=== PATIENT | female | born 1975 | race Caucasian/White ===

== ENCOUNTER 2024-05-12 11:33 | Emergency (ER) | payer BC, OTHER, SELFPAY ==
--- NOTE | ~2024-05-12 | XR_ITS ---
XR chest 2V Ordering provider: Zarina Rucker APRN History: 48 years Female with . cough x 1 week, cp when cough, mild SOB . Comparison: None. FINDINGS: MEDIASTINUM: The cardiac silhouette is not enlarged. LUNGS: No effusions or pneumothorax. Prominent bronchovascular markings in the lower lobes with minim al interstitial changes which may indicate pneumonitis.Follow-up advised. OTHER: No free air under the diaphragm. IMPRESSION: Prominent bronchovascular markings in the lower lobes with minimal interstitial changes which may ind icate bronchitis/pneumonitis. Follow-up advised. Reviewed, dictated and finalized at location A. IMPRESSION: Prominent bronchovascular markings in the lower lobes with minimal interstitial changes which may indicate bronchitis/pneumonitis. Follow-up advised.
--- NOTE | 2024-05-12 11:58 | ED.URI ---
HPI - URI/Sore Throat General Chief Complaint: Upper Respiratory Infection Stated Complaint: cough,bilateral ear discomfort Time Seen by Provider: 05/12/24 12:01 Source: patient and RN notes reviewed Mode of arrival: ambulatory Limitations: no limitations History of Present Illness HPI Narrative: 48-year-old female presented for complaint of harsh frequent cough for over 1 week. Endorses subjective fever, body ache and fatigue. Tested negative for COVID 3 days ago. Taking Mucinex. Denies shortness of breath, wheezing, nausea, vomiting, diarrhea. MD elicited complaint: cough Related Data Allergies Allergy/AdvReac Type Severity Reaction Status Date / Time erythromycin base AdvReac Nausea and Verified 05/12/24 11:50 Vomiting Review of Systems Review of Systems: CONSTITUTIONAL: Endorses malaise, chills, sweats, fever EYES: Denies visual changes, redness, or discharge ENT: Reports rhinorrhea, otalgia, denies sore throat CARDIOVASCULAR: Denies chest pain, palpitations, edema RESPIRATORY: Reports cough, post nasal drainage. Denies dyspnea GASTROINTESTINAL: Denies abdominal pain, nausea, vomiting, diarrhea SKIN: Denies rash or itching MUSCULOSKELETAL: Endorses myalgia Exam Narrative: GENERAL: mildly ll-appearing, nontoxic no acute distress. EYES: conjunctivae clear ENT: Mucous membranes moist. Right TM pearly liriano with dull light reflex; left TM erythematous, bulging and intact; canal not erythematous, no drainage no tragal tenderness. Oropharynx not erythematous without lesions or exudate, no drooling, no hoarseness, no trismus, uvula midline. No tripod positioning, muffled voice, soft palate or pharyngeal wall bulging NECK: Supple. No lymphadenopathy CHEST: Clear to auscultation, breath sounds equal. Frequent information security manager cough. No wheezing, rhonchi, rales, or stridor. No respiratory distress, speaks in full sentences. HEART: Regular rate and rhythm. No murmur heard. SKIN: Warm, dry, no rash. NEURO: Alert and oriented x3. PSYCH: Normal mood and affect Course Course Emergency Course: Patient is aware of diagnosis, understands and agrees to treatment plan. Anticipatory guidance given. Patient agrees to follow-up as directed and is aware of reasons to seek care at the emergency department. Portions of this record may have been created with voice recognition software Level of Care: Express Care Visit Vital Signs Vital signs: Vital Signs Temperature 98.5 F 05/12/24 12:01 Pulse Rate 84 05/12/24 12:01 Respiratory Rate 15 05/12/24 12:01 Blood Pressure 105/74 05/12/24 12:01 Pulse Oximetry 97 05/12/24 12:01 Oxygen Delivery Room Air 05/12/24 12:01 Temperature 98.5 F 05/12/24 12:01 Pulse Rate 84 05/12/24 12:01 Respiratory Rate 15 05/12/24 12:01 Blood Pressure 105/74 05/12/24 12:01 Pulse Oximetry 97 05/12/24 12:01 Oxygen Delivery Room Air 05/12/24 12:01 reviewed MDM - URI/Sore Throat MDM Narrative Medical decision making narrative: Discussed physical exam findings c/w Left AOM, and reviewed CXR; reviewed RX. Advised supportive measures and signs/symptoms to go to the ER. Pt is appropriate for outpt treatment and f/u. Differential Diagnosis Differential diagnosis: Likely upper respiratory infection, otitis media, sinusitis, viral infection, bronchitis, influenza and pharyngitis Imaging Data Radiologist's impression: Patient: Zara Mcgill : 1975 MR#: [id number] Age: 48 Acct:[id number] [facility] ADM Date: 05/12/24Attending Dr: Ordering Physician: Zarina Rucker APRN Date of Service: 05/12/24 Procedure(s): XR chest 2V Accession Number(s): [id number] cc: Zarina Rucker APRN; UNKNOWN,DOCTOR~ XR chest 2V Ordering provider: Zarina Rucker APRN History: 48 years Female with . cough x 1 week, cp when cough, mild SOB . Comparison: None. FINDINGS: MEDIASTINUM: The cardiac silhouette is not enlarged. LUNGS: No effusions or pneumothorax. Prominent bronchovascular markings in the lower lobes with minimal interstitial changes which may indicate pneumonitis.Follow-up advised. OTHER: No free air under the diaphragm. IMPRESSION: Prominent bronchovascular markings in the lower lobes with minimal interstitial changes which may indicate bronchitis/pneumonitis. Follow-up advised. Discharge Plan Discharge Clinical Impression: Otitis media, Bronchitis Patient Disposition: Home, Self-Care Condition: Stable Instructions: Antibiotic Form, Ear Infection (ED), Acute Bronchitis (ED) Additional Instructions: Acute bronchitis can be contagious because it is usually caused by infection with a virus or bacteria. It is usually for a few days but you can be contagious for up to one week. Avoid crowds until you do not have a fever and symptoms are improved Take medication as directed Recommend Flonase spray and Zyrtec (or Claritin/Angélica) over the counter Cough syrup may cause drowsiness; avoid driving or take it at night time. Tylenol 1000mg every 8 hours as needed for pain Symptomatic treatment includes: rest, fluids, and increase humidity of the air at home. Follow up with your primary care provider as needed in 1 week Go to the ER for worsening symptoms or concerns Prescriptions: New benzonatate 200 mg capsule 200 mg PO TID PRN (Reason: cough) Qty: 20 0RF methylprednisolone [Medrol (Ghulam)] 4 mg tablets,dose pack See Rx Instructions .ROUTE .COMPLEX Qty: 21 0RF Rx Instructions: orally per package directions amoxicillin-pot clavulanate 875-125 mg tablet 1 tablet PO Q12H 7 Days Qty: 14 0RF Follow-up/Referrals: UNKNOWN,DOCTOR [Primary Care Provider] -
[2024-05-12 12:01] VITALS: BP 105/74; PULSE 84; RESP 15; TEMP 36.9; O2SAT 97
== END 2024-05-12 12:43 | disposition home or self-care (01) ==
PROVIDERS: Emergency Provider Nurse Practitioner Family
DX: H66.92 Otitis media, unspecified, left ear (principal); J40 Bronchitis, not specified as acute or chronic
CPT/HCPCS: 71046; 99203; G0463